=== PATIENT | female | born 1990 | race Hispanic/Latino ===

== ENCOUNTER 2019-11-22 15:38 | Emergency (ER) | payer OTHER ==
[2019-11-22 16:20] LABS: Urine Blood 2+ (NEG); Urine Glucose NEGATIVE (NEG); Urine Protein NEGATIVE (NEG); Urine Specific Gravity 1.015 (1.005-1.030)
[2019-11-22 16:23] LABS: Urine Bacteria 20-50 /HPF (<20); Urine Culture Reflex Order NOT NEEDED; Urine RBC <5 /HPF (NONE SEEN)
--- NOTE | 2019-11-22 16:57 | ER ---
Nurse's Notes [facility] Name: Yara Jack Age: 29 yrs Sex: Female : 1990 Arrival Date: 11/22/2019 Time: 15:39 Bed 15 Private MD: Diagnosis: Influenza due to certain identified influenza viruses;Urinary tract infection, site not specified Presentation: 11/22 15:44 Presenting complaint: Productive cough, fever, sore throat, body aches, chills, and hb headache x 3 days. TMAX 101.5. Transition of care: patient was not received from another setting of care. Onset of symptoms was November 19, 2019. Risk Assessment: Do you want to hurt yourself or someone else? Patient reports no desire to harm self or others. Initial Sepsis Screen: Does the patient meet any 2 criteria? HR > 90 bpm. No. Patient's initial sepsis screen is negative. Care prior to arrival: Medication(s) given: DqyQuil at 1430. 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 - Coronavirus screen:: The patient has NOT traveled to [place], [place], or [place] in the past 14 days. The patient has NOT had contact with known/suspected case of Coronavirus? Proceed with normal triage procedures. - Social history:: Smoking status: Patient denies any tobacco usage or history of. - Ebola Screening: : No symptoms or risks identified at this time. Screenin:16 Abuse screen: Denies threats or abuse. Denies injuries from another. Nutritional aj1 screening: No deficits noted. Tuberculosis screening: No symptoms or risk factors identified. Fall Risk None identified. Assessment: 17:16 General: Appears in no apparent distress. uncomfortable, Behavior is calm, cooperative, aj1 appropriate for age. Pain: Complains of pain in face. Neuro: Level of Consciousness is awake, alert, obeys commands, Oriented to person, place, time, situation. Cardiovascular: Patient's skin is warm and dry. Respiratory: Reports cough that is hacking, persistent Airway is patent Respiratory effort is even, unlabored, Respiratory pattern is regular, symmetrical, Breath sounds are clear bilaterally. GI: No signs and/or symptoms were reported involving the gastrointestinal system. : No signs and/or symptoms were reported regarding the genitourinary system. EENT: Reports nasal congestion nasal discharge. Derm: No signs and/or symptoms reported regarding the dermatologic system. Skin is pink, warm \T\ dry. normal. Musculoskeletal: No signs and/or symptoms reported regarding the musculoskeletal system. Circulation, motion, and sensation intact. Vital Signs: 15:46 BP 144 / 92; Pulse 106; Resp 16; Temp 99.3(TE); Pulse Ox 97% on R/A; Weight 74.84 kg; hb Height 5 ft. (152.40 cm); Pain 8/10; 15:46 Body Mass Index 32.22 (74.84 kg, 152.40 cm) hb ED Course: 15:39 Patient arrived in ED. rg4 15:45 Maggie Cedeno FNP-C is PHCP. snw 15:45 Angel Mckeon MD is Attending Physician. snw 15:46 Triage completed. hb 15:46 Arm band placed on. hb 15:55 Vane Richardson RN is Primary Nurse. aj1 16:45 PHCP role handed off by Maggie Cedeno FNP-C jmm 16:45 Andres Rubio PA is PHCP. [facility] 17:16 Patient has correct armband on for positive identification. Bed in low position. Call aj1 light in reach. Side rails up X 1. 17:16 No provider procedures requiring assistance completed. Patient did not have IV access aj during this emergency room visit. Administered Medications: No medications were administered Outcome: 16:56 Discharge ordered by . jorge luis 17:16 Discharged to home ambulatory. aj1 17:16 Condition: good 17:16 Discharge instructions given to patient, Instructed on discharge instructions, follow up and referral plans. medication usage, Demonstrated understanding of instructions, follow-up care, medications, Prescriptions given X 2. 17:18 Patient left the ED. aj Signatures: Vane Richardson RN RN aj Maggie Cedeno FNP-C FNP-Csnw Andres Rubio PA PA jmm Karen Love, RN RN hb Traci Mcallister rg4
--- NOTE | 2019-11-22 16:57 | EDPHYS ---
Physician Documentation [facility] Name: Yara Jack Age: 29 yrs Sex: Female : 1990 Arrival Date: 11/22/2019 Time: 15:39 Bed 15 Private MD: ED Physician Angel Mckeon HPI: 11/22 16:02 This 29 yrs old Female presents to ER via Ambulatory with complaints of Fever, snw Cough, Chills,Body Aches. 16:02 The patient reports fever, that was measured at 101.5 degrees Fahrenheit. Onset: The snw symptoms/episode began/occurred suddenly, 3 day(s) ago, and became persistent. Associated signs and symptoms: Pertinent positives: abdominal pain, headache, sinus congestion, sore throat. Severity of symptoms: At their worst the symptoms were moderate severe. The patient has not experienced similar symptoms in the past. The patient has not recently seen a physician. 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 - Coronavirus screen:: The patient has NOT traveled to [place], [place], or [place] in the past 14 days. The patient has NOT had contact with known/suspected case of Coronavirus? Proceed with normal triage procedures. - Social history:: Smoking status: Patient denies any tobacco usage or history of. - Ebola Screening: : No symptoms or risks identified at this time. ROS: 16:00 Eyes: Negative for injury, pain, redness, and discharge. snw 16:00 Neck: Negative for injury, pain, and swelling, Cardiovascular: Negative for chest pain, palpitations, and edema, Respiratory: Negative for shortness of breath, cough, wheezing, and pleuritic chest pain. 16:00 Back: Negative for injury and pain, : Negative for injury, bleeding, discharge, and swelling, MS/Extremity: Negative for injury and deformity, Skin: Negative for injury, rash, and discoloration. 16:00 Constitutional: Positive for body aches, fatigue, malaise. 16:00 ENT: Positive for nasal discharge, sore throat. 16:00 Abdomen/GI: Positive for abdominal pain. 16:00 Neuro: Positive for headache. Exam: 15:59 Head/Face: Normocephalic, atraumatic. Eyes: Pupils equal round and reactive to light, snw extra-ocular motions intact. Lids and lashes normal. Conjunctiva and sclera are non-icteric and not injected. Cornea within normal limits. Periorbital areas with no swelling, redness, or edema. ENT: Nares patent. No nasal discharge, no septal abnormalities noted. Tympanic membranes are normal and external auditory canals are clear. Oropharynx with no redness, swelling, or masses, exudates, or evidence of obstruction, uvula midline. Mucous membranes moist. Neck: Trachea midline, no thyromegaly or masses palpated, and no cervical lymphadenopathy. Supple, full range of motion without nuchal rigidity, or vertebral point tenderness. No Meningismus. Chest/axilla: Normal chest wall appearance and motion. Nontender with no deformity. No lesions are appreciated. 15:59 Respiratory: Lungs have equal breath sounds bilaterally, clear to auscultation and percussion. No rales, rhonchi or wheezes noted. No increased work of breathing, no retractions or nasal flaring. Abdomen/GI: Soft, non-tender, with normal bowel sounds. No distension or tympany. No guarding or rebound. No evidence of tenderness throughout. Back: No spinal tenderness. No costovertebral tenderness. Full range of motion. Skin: Warm, dry with normal turgor. Normal color with no rashes, no lesions, and no evidence of cellulitis. MS/ Extremity: Pulses equal, no cyanosis. Neurovascular intact. Full, normal range of motion. Neuro: Awake and alert, GCS 15, oriented to person, place, time, and situation. Cranial nerves II-XII grossly intact. Motor strength 5/5 in all extremities. Sensory grossly intact. Cerebellar exam normal. Normal gait. Psych: Awake, alert, with orientation to person, place and time. Behavior, mood, and affect are within normal limits. 15:59 Constitutional: The patient appears alert, awake, uncomfortable. 15:59 Cardiovascular: Rate: tachycardic, Rhythm: regular, Pulses: no pulse deficits are appreciated. Vital Signs: 15:46 BP 144 / 92; Pulse 106; Resp 16; Temp 99.3(TE); Pulse Ox 97% on R/A; Weight 74.84 kg; hb Height 5 ft. (152.40 cm); Pain 8/10; 15:46 Body Mass Index 32.22 (74.84 kg, 152.40 cm) hb MDM: 15:49 Patient medically screened. estrella 16:01 Data reviewed: vital signs, nurses notes. Data interpreted: Pulse oximetry: on room air snw is 97 %. Interpretation: acceptable. Counseling: I had a detailed discussion with the patient and/or guardian regarding: the historical points, exam findings, and any diagnostic results supporting the discharge/admit diagnosis, lab results, the need for outpatient follow up, to return to the emergency department if symptoms worsen or persist or if there are any questions or concerns that arise at home. Special discussion: I have referred the patient to see his PCP for further evaluation of high blood pressure. Based on the history and exam findings, there is no indication for further emergent testing or inpatient evaluation. I discussed with the patient/guardian the need to see the primary care provider for further evaluation of the symptoms. 16:02 Differential diagnosis: viral Infection, bacterial infection, URI, bronchitis. snw 11/22 15:45 Order name: Flu; Complete Time: 16:54 snw 11/22 15:45 Order name: Strep; Complete Time: 16:54 snw 11/22 15:45 Order name: Urine Culture snw 11/22 15:45 Order name: Urine Microscopic Only; Complete Time: 16:54 snw 11/22 16:08 Order name: Urine Dipstick--Ancillary (enter results); Complete Time: 16:54 eb 11/22 16:08 Order name: Urine --Ancillary (enter results); Complete Time: 16:54 eb 11/22 15:45 Order name: Urine Test (obtain specimen); Complete Time: 16:16 snw 11/22 15:45 Order name: Urine Dipstick-Ancillary (obtain specimen); Complete Time: 16:16 snw 11/22 16:26 Order name: Throat Culture EDMS Administered Medications: No medications were administered Disposition: 11/22/19 16:56 Discharged to Home. Impression: Influenza due to certain identified influenza viruses, Urinary tract infection, site not specified. - Condition is Stable. - Discharge Instructions: Influenza, Adult, Urinary Tract Infection, Adult. - Prescriptions for Cephalexin 500 mg Oral Capsule - take 1 capsule by ORAL route every 12 hours for 10 days; 20 capsule. Tamiflu 75 mg Oral Capsule - take 1 tablet by ORAL route every 12 hours for 5 days; 10 tablet. - Medication Reconciliation Form, Thank You Letter, Antibiotic Education, Prescription Opioid Use form. - Follow up: Private Physician; When: 2 - 3 days; Reason: Recheck today's complaints, Continuance of care, Re-evaluation by your physician. Addendum: 11/24/2019 07:26 Co-signature as Attending Physician, Angel Mckeon MD I agree with the assessment and c tracy plan of care. Signatures: Dispatcher [employer] EDVane Farr, RN RN Angel Nicolas MD MD cha Therrien, Shelly, TREE AND SHRUB TECHNICIAN-C TREE AND SHRUB TECHNICIAN-Csnw Andres Rubio PA PA jm Karen Love RN RN Corrections: (The following items were deleted from the chart) 11/22 16:56 16:56 11/22/2019 16:56 Discharged to Home. Impression: Influenza due to certain [facility] identified influenza viruses. Condition is Stable. Forms are Medication Reconciliation Form, Thank You Letter, Antibiotic Education, Prescription Opioid Use. Follow up: Private Physician; When: 2 - 3 days; Reason: Recheck today's complaints, Continuance of care, Re-evaluation by your physician. [facility] 17:18 16:56 11/22/2019 16:56 Discharged to Home. Impression: Influenza due to certain [facility] identified influenza viruses; Urinary tract infection, site not specified. Condition is Stable. Forms are Medication Reconciliation Form, Thank You Letter, Antibiotic Education, Prescription Opioid Use. Follow up: Private Physician; When: 2 - 3 days; Reason: Recheck today's complaints, Continuance of care, Re-evaluation by your physician. [facility]
[2019-11-22 18:17] VITALS: BP 144/92; TEMP 99.3; O2SAT 97
== END 2019-11-22 17:18 | disposition home or self-care (01) ==
LOC: ER 15:38
DX: J10.1 Influenza due to other identified influenza virus with other respiratory manifestations (principal); N39.0 Urinary tract infection, site not specified
CPT/HCPCS: 81003; 81015; 81025; 87070; 87081; 87086; 87088; 87804; 99282

== ENCOUNTER 2021-12-14 14:45 | Emergency (ER) | payer OTHER ==
--- OUTSIDE RECORDS SUMMARY | 2021-12-14 14:48 | XMS REPORT | Continuity of Care Document ---
:1990 Author Organization [facility] t Address [address] [place] [address] Care Team Providers Name Role Phone PCP, DOES NOT HAVE A Primary Care Physician Unavailable Kamala ECKERT Attending Clinician Unavailable Kamala Eckert MD Attending Clinician Payers Payer Name Policy Type Policy Number Effective Date Expiration Date [facility] [id number] 2014 CHOICE MEDICAID 00:00:00 Problems Condition Condition Condition Status Onset Resolution Last Treating Co mments Source Name Details Category Date Date Treatment Clinician Date Obesity Obesity Disease Active 2020-10 Univers (BMI (BMI 1-12 ity of 30-39.9) 30-39.9) 00:00: [place] [address] [facility] Allergies, Adverse Reactions, Alerts Allergy Allergy Status Severity Reaction(s) Onset Inactive Treating Comm ents Source Name Type Date Date Clinician NO KNOWN Drug Active Univers ALLERGIE Class ity of [facility] Social History Social Habit Start Date Stop Date Quantity Comments Source History of Cigarette Smoker Universi ty of tobacco use [facility] History SDOH University o f Alcohol Frequency [place] [facility] History SDOH University o f Alcohol Std [facility] Drinks [facility] History SDNC University o f Alcohol Binge [facility] Exposure to Not sure University of SARS-CoV-2 [facility] (event) [facility] Alcohol intake 2021-09-30 2021-09-30 Current drinker Unive rsity of 00:00:00 00:00:00 of alcohol [facility] (finding) [facility] Tobacco use and 2021-09-022021-09-02 Never used Universit y of exposure 00:00:00 00:00:00 [facility] Alcohol Comment 2021-09-02 2021-09-02 social Universit y of 00:00:00 00:00:00 [facility] Tobacco Comment 2021-09-02 2021-09-02 5-8 ciggs a day Univ ersity of 00:00:00 00:00:00 [facility] Sex Ass[birth year] At [birth year] Universit y of 00:00:00 00:00:00 [facility] Smoking Status Start Date Stop Date Source Current every day smoker 2021-09-02 00:00:00 Uni versity [facility] Medications Ordered Filled Start Stop Current Ordering Indication Dosage Frequency Signature Comments Components Source Medication Medication Date Date Medication? Clinician (SIG) Name Name SERTraline 2020-10 Yes Univers 50 mg 1-03 ity of tablet 00:00: [address] losartan 25 2020-10 Yes Univer s mg tablet 1-03 ity of 00:00: [address] busPIRone 5 Yes Univer s mg tablet 8- ity of 00:00: [address] Vital Signs Vital Name Observation Time Observation Value Comments Source Systolic blood 2021-09-30 15:31:00 120 mm[Hg] Univer sity of pressure [facility] Diastolic blood 2021-09-30 15:31:00 78 mm[Hg] Unive rsity of pressure [facility] Heart rate 2021-09-30 15:31:00 74 /min [facility] Body temperature 2021-09-30 15:31:00 36.89 [facility] Respiratory rate 2021-09-30 15:31:00 18 /min [facility] Body height 2021-09-30 15:31:00 152.4 cm [facility] Body weight 2021-09-30 15:31:00 73.483 kg [facility] BMI 2021-09-30 15:31:00 31.64 kg/m2 [facility] Procedures This patient has no known procedures. Encounters Start End Encounter Admission Attending Care Care Encounter Source Date/Time Date/Time Type Type Clinicians Facility Department ID 2021-09-30 2021-09-30 Outpatient R [facility] [id number] Univers 09:30:00 12:41:13 MARIBEL vasquez of [facility] 2021-09-30 2021-09-30 Office Ad, [facility] [id number] Univers 09:24:40 09:54:40 Visit Maribel ROSA [id number] christina lauren ITHACA [id number] Jaciel KIM [id number] [facility] [address] [facility] Results This patient has no known results.
[2021-12-14 17:12] LABS: Urine Blood Trace-intact (Negative); Urine Glucose Negative (Negative); Urine Protein Negative (Negative); Urine Specific Gravity 1.025 (1.005-1.030)
[2021-12-14] MEDS ORDERED: ONDANSETRON 4 MG/2 ML VIAL ONE (17:22)
[2021-12-14] MEDS ORDERED: NA CHLORIDE 0.9% 1,000 ML ONE (17:22)
[2021-12-14] MEDS ORDERED: FAMOTIDINE 20 MG/2 ML VIAL IV ONE (17:22)
[2021-12-14 17:30] LABS: Urine Bacteria 20-50 /HPF (<20); Urine Mucus 1+ /HPF (NONE SEEN); Urine RBC <5 /HPF (NONE SEEN)
[2021-12-14 18:02] LABS: Absolute Lymphocytes (CBC) 1.7 K/uL (0.7-4.9); Hematocrit 39.3 % (36.0-45.0); Lymphocytes % 19.2 % (15.3-44.8); MPV 7.2 fL (7.6-11.3); RBC Red Blood Cell Count 4.79 M/uL (3.86-4.86)
[2021-12-14 18:13] LABS: ALT/SGPT 35 U/L (12-78); AST/SGOT 11 U/L (15-37); Albumin 3.8 g/dL (3.4-5.0); Alkaline Phosphatase 79 U/L (45-117); BUN Blood Urea Nitrogen 10 mg/dL (7-18); Bicarbonate 27 mmol/L (21-32); Bilirubin Total 0.3 mg/dL (0.2-1.0); Glucose Level 86 mg/dL (74-106); Lipase 118 U/L (73-393); Potassium 3.7 mmol/L (3.5-5.1); Protein, Total 8.5 g/dL (6.4-8.2); Sodium Level 137 mmol/L (136-145)
[2021-12-14 18:14] LABS: Bilirubin Direct < 0.1 mg/dL (0-0.2)
--- NOTE | 2021-12-14 18:20 | RAD REPORT ---
EXAM DESCRIPTION: US - Abdomen Exam Limited - 12/14/2021 6:04 pm CLINICAL HISTORY: ABD PAIN COMPARISON: ABDOMINAL EXAM COMPLETE dated 05/11/2009 FINDINGS: The gallbladder demonstrates gallbladder sludge and small gallstone. No pericholecystic fl uid or gallbladder wall thickening. The common bile duct is normal measuring 2 mm. The liver demonstrates no findings of intrahepatic biliary dilatation. IMPRESSION: Small gallstone and gallbladder sludge.
--- NOTE | 2021-12-14 19:04 | ER ---
Nurse's Notes [facility] Name: Yara Jack Age: 31 yrs Sex: Female : 1990 Arrival Date: 12/14/2021 Time: 14:47 Bed 11 Private MD: Diagnosis: Upper abdominal pain, unspecified;Nausea with vomiting, unspecified;Other cholelithiasis without obstruction Presentation: 12/14 15:05 Chief complaint: Patient states: she began having abdominal pain with nausea and ap3 vomiting this morning. Patient states she was seen by here PCP yesterday (prior to todays complaint) and was dx with upper respiratory infection. Coronavirus screen: muscle pain, nausea, Client presents with at least one sign or symptom that may indicate coronavirus-19. Standard/surgical mask placed on the client. Provider contacted for isolation considerations. Ebola Screen: No symptoms or risks identified at this time. Initial Sepsis Screen: Does the patient meet any 2 criteria? No. Patient's initial sepsis screen is negative. Does the patient have a suspected source of infection? No. Patient's initial sepsis screen is negative. Risk Assessment: Do you want to hurt yourself or someone else? Patient reports no desire to harm self or others. Onset of symptoms was December 14, 2021. 15:05 Method Of Arrival: Ambulatory ap3 15:05 Acuity: ARTIS 3 ap3 Triage Assessment: 15:08 General: Appears in no apparent distress. Behavior is calm, cooperative. Pain: ap3 Complains of pain in abdomen Pain began gradually, this morning Also complains of nausea. Neuro: Level of Consciousness is awake, alert, obeys commands, Oriented to person, place, time, situation, Appropriate for age Moves all extremities. Gait is steady, Speech is normal. Cardiovascular: Patient's skin is warm and dry. Respiratory: Airway is patent Respiratory effort is even, unlabored, Respiratory pattern is regular, symmetrical. GI: Reports lower abdominal pain, upper abdominal pain, intolerance of food, nausea, vomiting. 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 - Social history:: Smoking status: Patient reports the use of cigarette tobacco products, smokes one-half pack cigarettes per day. Screenin:09 Abuse screen: Denies threats or abuse. Nutritional screening: No deficits noted. ap3 Tuberculosis screening: No symptoms or risk factors identified. Fall Risk No fall in past 12 months (0 pts). Assessment: 18:06 General: Appears in no apparent distress. comfortable, Behavior is calm, cooperative, ld1 appropriate for age. Pain: Complains of pain in abdomen Pain does not radiate. Pain currently is 7 out of 10 on a pain scale. Quality of pain is described as throbbing, Pain began gradually, Is continuous. Neuro: Level of Consciousness is awake, alert, obeys commands, Oriented to person, place, time, situation. Cardiovascular: Capillary refill < 3 seconds Patient's skin is warm and dry. Respiratory: Airway is patent Respiratory effort is even, unlabored. GI: Abdomen is flat, non-distended, Reports lower abdominal pain, upper abdominal pain, nausea, vomiting. : No signs and/or symptoms were reported regarding the genitourinary system. EENT: No signs and/or symptoms were reported regarding the EENT system. Derm: No signs and/or symptoms reported regarding the dermatologic system. Vital Signs: 15:05 BP 119 / 91; Pulse 80; Resp 16; Temp 98.1; Pulse Ox 100% ; Weight 75.75 kg; Height 5 ap3 ft. 0 in. (152.40 cm); Pain 8/10; 18:06 BP 125 / 89; Pulse 86; Resp 18; Pulse Ox 100% on R/A; Pain 6/10; ld1 15:05 Body Mass Index 32.61 (75.75 kg, 152.40 cm) ap3 ED Course: 14:47 Patient arrived in ED. as 15:07 Triage completed. ap3 15:10 Arm band placed on left wrist. ap3 16:39 Angel Fuentes PA is PHCP. cp 16:39 Irsi Hubbard MD is Attending Physician. cp 16:45 Sheron Acevedo RN is Primary Nurse. ld1 17:13 Urine Microscopic Only Sent. ld1 18:04 US Abdomen Limited In Process Unspecified. EDMS 18:06 Patient has correct armband on for positive identification. Placed in gown. Bed in low ld1 position. Call light in reach. Side rails up X2. Pulse ox on. NIBP on. Door closed. Noise minimized. Warm blanket given. 18:06 No provider procedures requiring assistance completed. Inserted saline lock: 22 gauge ld1 in left antecubital area, using aseptic technique. Blood collected. 19:08 IV discontinued, intact, bleeding controlled, No redness/swelling at site. ld1 Administered Medications: 17:39 Drug: Zofran (Ondansetron) 4 mg Route: IVP; Site: left antecubital; ld1 17:39 Drug: Pepcid (famotidine) 20 mg Route: IVP; Site: left antecubital; ld1 17:39 Drug: NS 0.9% 1000 ml Route: IV; Rate: 1 bolus; Site: left antecubital; ld1 Outcome: 19:03 Discharge ordered by . asim 19:08 Discharged to home ambulatory. ld1 19:08 Condition: stable 19:08 Discharge instructions given to patient, Instructed on discharge instructions, follow up and referral plans. medication usage, Demonstrated understanding of instructions, follow-up care, medications, Prescriptions given X 2. 19:08 Patient left the ED. ld1 Signatures: Dispatcher [employer] EDMS Mackenzie Merino Corey, PA PA cp Prokisch, Amanda, RN RN ap3 Sheron Acevedo RN RN ld1
--- NOTE | 2021-12-14 19:04 | EDPHYS ---
Physician Documentation [facility] Name: Yara Jack Age: 31 yrs Sex: Female : 1990 Arrival Date: 12/14/2021 Time: 14:47 Bed 11 Private MD: ED Physician Iris Hubbard HPI: 12/14 17:00 This 31 yrs old Female presents to ER via Ambulatory with complaints of cp Nausea/Vomiting, Abdominal Pain. 17:00 The patient presents to the emergency department with nausea, that is mild, vomiting, cp that is intermittent, abdominal pain, of the upper abdomen. 17:00 Onset: The symptoms/episode began/occurred this morning. Possible causes: antibiotics, cp macrolide, Zithromax. Associated signs and symptoms: Pertinent negatives: constipation, diarrhea, fever, GI bleeding, active vomiting. Severity of symptoms: in the emergency department the symptoms have improved mildly. CLAMMER: 15:09 LMP N/A - control method ap3 Historical: - Allergies: 15:07 NKA; ap3 - Home Meds: 15:07 Zoloft Oral [Active]; losartan oral [Active]; ap3 - PMHx: 15:07 Hypertensive disorder; Anxiety; ap3 - Immunization history:: Client reports receiving the 2nd dose of the Covid vaccine, Flu vaccine is not up to date. - Social history:: Smoking status: Patient reports the use of cigarette tobacco products, smokes one-half pack cigarettes per day. ROS: 17:05 Constitutional: Negative for body aches, chills, fever, poor PO intake. cp 17:05 Eyes: Negative for injury, pain, redness, and discharge. cp 17:05 ENT: Negative for drainage from ear(s), ear pain, sore throat, difficulty swallowing, difficulty handling secretions. 17:05 Cardiovascular: Negative for chest pain, palpitations. 17:05 Respiratory: Positive for cough, Negative for shortness of breath, wheezing. 17:05 Abdomen/GI: Positive for abdominal pain, nausea and vomiting, anorexia, Negative for diarrhea, constipation. 17:05 : Negative for urinary symptoms. 17:05 Neuro: Negative for altered mental status, dizziness, headache, weakness. 17:05 All other systems are negative. Exam: 17:10 Constitutional: The patient appears in no acute distress, alert, awake, non-toxic, well cp developed, well nourished. 17:10 Head/Face: Normocephalic, atraumatic. cp 17:10 Eyes: Periorbital structures: appear normal, Conjunctiva: normal, no exudate, no injection, Sclera: no appreciated abnormality, Lids and lashes: appear normal, bilaterally. 17:10 ENT: External ear(s): are unremarkable, Nose: is normal, Mouth: Lips: moist, Oral mucosa: pink and intact, moist, Posterior pharynx: Airway: no evidence of obstruction, patent, erythema, is not appreciated, exudate, is not appreciated. 17:10 Neck: ROM/movement: is normal, is supple, without pain, no range of motions limitations. 17:10 Chest/axilla: Inspection: normal. 17:10 Cardiovascular: Rate: normal, Rhythm: regular. 17:10 Respiratory: the patient does not display signs of respiratory distress, Respirations: normal, no use of accessory muscles, no retractions, labored breathing, is not present, Breath sounds: are clear throughout, no decreased breath sounds, no stridor, no wheezing. 17:10 Abdomen/GI: Inspection: abdomen appears normal, Bowel sounds: active, all quadrants, Palpation: soft, in all quadrants, mild abdominal tenderness, in the epigastric area and right upper quadrant, rebound tenderness, is not appreciated, involuntary guarding, is not appreciated. 17:10 Back: CVA tenderness, is absent. Vital Signs: 15:05 BP 119 / 91; Pulse 80; Resp 16; Temp 98.1; Pulse Ox 100% ; Weight 75.75 kg; Height 5 ap3 ft. 0 in. (152.40 cm); Pain 8/10; 18:06 BP 125 / 89; Pulse 86; Resp 18; Pulse Ox 100% on R/A; Pain 6/10; ld1 15:05 Body Mass Index 32.61 (75.75 kg, 152.40 cm) ap3 MDM: 16:50 Patient medically screened. cp 18:00 Differential diagnosis: gastritis, cholecystitis, pancreatitis, appendicitis, viral cp gastroenteritis, gastroenteritis. 19:00 Data reviewed: vital signs, nurses notes, lab test result(s), radiologic studies, cp ultrasound. 19:00 Counseling: I had a detailed discussion with the patient and/or guardian regarding: the cp historical points, exam findings, and any diagnostic results supporting the discharge/admit diagnosis, lab results, radiology results, to return to the emergency department if symptoms worsen or persist or if there are any questions or concerns that arise at home. Response to treatment: the patient's symptoms have markedly improved after treatment. ED course: VSS. Pain improved. Will have patient stop Zithromax and start Augmentin. Continue to monitor symptoms and f/u with general surgery for gallstones. 12/14 16:59 Order name: Urine Microscopic Only; Complete Time: 18:27 cp 12/14 18:27 Interpretation: Normal except: UBACT 20-50. cp 12/14 17:12 Order name: Urine Dipstick-Ancillary [facility] 12/14 17:13 Order name: Urine Dipstick-Ancillary; Complete Time: 17:13 [facility] 12/14 17:13 Interpretation: Normal except: UBLD Trace-intact. 12/14 17:13 Order name: Basic Metabolic Panel; Complete Time: 18:27 cp 12/14 17:13 Order name: CBC with Diff; Complete Time: 18:27 cp 12/14 18:27 Interpretation: Normal except: MPV 7.2; SANDEEP% 74.5. cp 12/14 17:13 Order name: Hepatic Function; Complete Time: 18:27 cp 12/14 18:27 Interpretation: Normal except: AST 11; TP 8.5; GLOB 4.7; A/G 0.8. 12/14 16:50 Order name: Urine Dipstick-Ancillary (obtain specimen); Complete Time: 17:13 cp 12/14 17:13 Order name: Lipase; Complete Time: 18:27 cp 12/14 17:13 Order name: US Abdomen Limited; Complete Time: 18:27 cp 12/14 17:22 Order name: Urine --Ancillary (enter results) 12/14 17:31 Order name: Urine Culture [facility] 12/14 16:50 Order name: Urine Test (obtain specimen); Complete Time: 17:13 cp 12/14 17:13 Order name: IV Saline Lock; Complete Time: 17:39 cp 12/14 17:13 Order name: Labs collected and sent; Complete Time: 17:39 cp Administered Medications: 17:39 Drug: Zofran (Ondansetron) 4 mg Route: IVP; Site: left antecubital; ld1 17:39 Drug: Pepcid (famotidine) 20 mg Route: IVP; Site: left antecubital; ld1 17:39 Drug: NS 0.9% 1000 ml Route: IV; Rate: 1 bolus; Site: left antecubital; ld1 Disposition Summary: 12/14/21 19:03 Discharge Ordered Location: Home cp Problem: new cp Symptoms: have improved cp Condition: Stable cp Diagnosis - Upper abdominal pain, unspecified cp - Nausea with vomiting, unspecified cp - Other cholelithiasis without obstruction cp Followup: cp - With: Private Physician - When: 2 - 3 days - Reason: Recheck today's complaints Discharge Instructions: - Discharge Summary Sheet cp - Abdominal Pain, Adult cp - Nausea and Vomiting, Adult cp - Cholelithiasis cp Forms: - Medication Reconciliation Form cp - Thank You Letter cp - Antibiotic Education cp - Prescription Opioid Use cp Prescriptions: - Augmentin 875-125 mg Oral Tablet - take 1 tablet by ORAL route every 12 hours for 10 days; 20 tablet; Refills: 0, cp Product Selection Permitted - Zofran 4 mg Oral Tablet - take 1 tablet by ORAL route every 12 hours As needed; 20 tablet; Refills: 0, cp Product Selection Permitted Signatures: Dispatcher [employer] EDMS Angel Fuentes PA PA cp Prokisch, Amanda RN RN ap3 Sheron Acevedo RN RN ld1
[2021-12-14 19:05] LABS: Urine Specific Gravity/Preg 1.025 (1.005-1.030)
[2021-12-14 20:20] VITALS: TEMP 98.1; O2SAT 100
[2021-12-14 20:23] VITALS: BP 125/89
== END 2021-12-14 19:08 | disposition home or self-care (01) ==
LOC: ER 14:45
DX: K80.80 Other cholelithiasis without obstruction (principal); R10.10 Upper abdominal pain, unspecified; I10 Essential (primary) hypertension; F41.9 Anxiety disorder, unspecified; F17.210 Nicotine dependence, cigarettes, uncomplicated
CPT/HCPCS: 85025; 87086; 80048; 36415; 81025; 80076; 83690; 76705; 96375; 96374; 99284; J7030; J2405; 81003; 81015; 87088

== ENCOUNTER → 2023-10-21 | Emergency (ER) | payer OTHER ==
--- OUTSIDE RECORDS SUMMARY | 2023-10-21 12:01 | XMS REPORT | Continuity of Care Document ---
Author Name Unknown Address [address] [facility] [address] [place] [address] [facility] thconnect Address [address] [facility]. [address] [place] [address] Care Team Providers Care Well Testing Operator Name Role Phone Sheron Cadena NP Primary Care Physician [phone]- [phone] ELICEO DOVER Attending Clinician UnavailELICEO Laureano Attending Clinician UnavailJOSIAH Rojas Attending Clinician Unavailable Josiah León MD Attending Clinician [phone] Doctor Unassigned, [place] Attending Clinician U navailable JESSICA VANN Attending Clinician Unavailable Jessica Vann MD Attending Clinician [phone] VIKI CLINE Attending Clinician UnavailViki [place] Attending Clinician [phone] Farrukh Wells MD Attending Clinician [phone] FARRUKH WELLS Attending Clinician Unavailable Only, Adc Test Attending Clinician Unavailable VIKI CLINE Admitting Clinician Unavaila FARRUKH Corrigan Admitting Clinician Unavailable Farrukh Wells MD Admitting Clinician [phone] JESSICA VANN Admitting Clinician Unavailable Payers Payer Name Policy Type Policy Number Effective Date Expirati on Date Source [employer] MAYRA FUNES [id number] 2014 00:00:00 Problems Condition Name Condition Details Condition Category Status Onset Date Resolution Date Last Treatment Date Treating Clinician Comments Source Routine gynecologi hayde examinatio n Routine gynecologi hayde examinatio n Disease Active 05-07 00:00: 00 [facility] Biliary colic Biliary colic Disease Active - 00:00: 00 Overview: Formattin g of this note might be different from the original. Added automatic ally from request for surgery [id number] [facility] Obesity (BMI 30-39.9) Obesity (BMI 30-39.9) Disease Active 2020-10 1 00:00: 00 [facility] Allergies, Adverse Reactions, Alerts Allergy Name Allergy Type Status Severity Reaction(s) Onset Date Inactive Date Treating Clinician Comments Source NO KNOWN ALLERGIE S Drug Class Active [facility] Social History Social Habit Start Date Stop Date Quantity Comments Source History of tobacco use Cigarette Smoker [facility] History SDOH Alcohol Frequency [facility] History SDOH Alcohol Std Drinks [facility] History SDOH Alcohol Binge [facility] Tobacco use and exposure 2023-05-07 00:00:00 2023-05-07 00:00:00 Smokeless tobacco non-user [facility] Alcohol intake 2023-05-07 00:00:00 2023-05-07 00:00:00 Current drinker of alcohol (finding) [facility] History of Social function 2023-02-26 00:00:00 2023-02-26 00:00:00 [facility] Exposure to SARS-CoV-2 (event) 2023-02-15 00:00:00 2023-02-25 21:39:00 Not sure [facility] Tobacco Comment 2022-06-14 00:00:00 2022-06-14 00:00:00 5-8 ciggs a day [facility] Alcohol Comment 2021-09-02 00:00:00 2021-09-02 00:00:00 social [facility] Sex Assigned At 1990 00:00:00 1990 00:00:00 [facility] Smoking Status Start Date Stop Date Source Smokes tobacco daily 2023-05-07 00:00:00 [facility] Medications Ordered Medication Name Filled Medication Name Start Date Stop Date Current Medication? Ordering Clinician Indication Dosage Frequency Signature (SIG) Comments Components Source amlodipine- atorvastata tin 2.5-20 mg per tablet 05-07 13:39: [address] [facility] amlodipine- atorvastata tin 2.5-20 mg per tablet 05-07 13:39: [address] [facility] amlodipine- atorvastata tin 2.5-20 mg per tablet 05-07 13:39: [address] [facility] PAWAN 1.5/30, 21, 1.5-30 mg-mcg per tablet 02-16 00:00: 00 05-07 00:00 :00 No TAKE ONE (1) TABLET(S) BY MOUTH DAILY IN THE MORNING. [facility] PAWAN 1.5/30, 21, 1.5-30 mg-mcg per tablet 02-16 00:00: 00 05-07 00:00 :00 No TAKE ONE (1) TABLET(S) BY MOUTH DAILY IN THE MORNING. [facility] losartan 50 mg tablet 02-14 00:00: 00 Yes 50mg Take 1 tablet by mouth in the morning. [facility] fenofibrate 54 mg tablet 02-14 00:00: 00 Yes 54mg Take 1 tablet by mouth in the morning. [facility] losartan 50 mg tablet 02-14 00:00: 00 Yes 50mg Take 1 tablet by mouth in the morning. [facility] fenofibrate 54 mg tablet 02-14 00:00: 00 Yes 54mg Take 1 tablet by mouth in the morning. [facility] losartan 50 mg tablet 02-14 00:00: 00 Yes 50mg Take 1 tablet by mouth in the morning. [facility] fenofibrate 54 mg tablet 4-26 00:00: 00 Yes 54mg Take 1 tablet by mouth in the morning. [facility] fluticasone propionate 50 mcg/actuati on nasal spray 413 00:00: 00 05-07 00:00 :00 No USE ONE (1) OR TWO (2) SPRAY(S) INTO EACH NOSTRIL DAILY. [facility] fluticasone propionate 50 mcg/actuati on nasal spray 413 00:00: 00 05-07 00:00 :00 No USE ONE (1) OR TWO (2) SPRAY(S) INTO EACH NOSTRIL DAILY. [facility] NUVARING 0.12-0.015 mg/24 hr vaginal insert 14 00:00: 00 Yes [id number] 1{each} Insert 1 Each into vagina once every month. Insert vaginally and leave in place for 3 consecutiv e weeks, then remove for [address] [facility] NUVARING 0.12-0.015 mg/24 hr vaginal insert 2021-0 914 00:00: 00 Yes [id number] 1{each} Insert 1 Each into vagina once every month. Insert vaginally and leave in place for 3 consecutiv e weeks, then remove for [address] [facility] NUVARING 0.12-0.015 mg/24 hr vaginal insert 0 9-14 00:00: 00 Yes [id number] 1{each} Insert 1 Each into vagina once every month. Insert vaginally and leave in place for 3 consecutiv e weeks, then remove for [address] [facility] NUVARING 0.12-0.015 mg/24 hr vaginal insert 2021-0 9-14 00:00: 00 Yes [id number] 1{each} Insert 1 Each into vagina once every month. Insert vaginally and leave in place for 3 consecutiv e weeks, then remove for [address] [facility] NUVARING 0.12-0.015 mg/24 hr vaginal insert 2021-0 9-14 00:00: 00 Yes [id number] 1{each} Insert 1 Each into vagina once every month. Insert vaginally and leave in place for 3 consecutiv e weeks, then remove for [address] [facility] NUVARING 0.12-0.015 mg/24 hr vaginal insert 07-05 00:00: 00 Yes [id number] 1{each} Insert 1 Each into vagina once every month. Insert vaginally and leave in place for 3 consecutiv e weeks, then remove for [address] [facility] NUVARING 0.12-0.015 mg/24 hr vaginal insert 07-05 00:00: 00 Yes [id number] 1{each} Insert 1 Each into vagina once every month. Insert vaginally and leave in place for 3 consecutiv e weeks, then remove for [address] [facility] NUVARING 0.12-0.015 mg/24 hr vaginal insert 07-05 00:00: 00 Yes [id number] 1{each} Insert 1 Each into vagina once every month. Insert vaginally and leave in place for 3 consecutiv e weeks, then remove for [address] [facility] Norethindro ne Acet-Ethiny l Est (LOESTRIN 1.5, ,) 1.5-30 mg-mcg per tablet 07-04 00:00: 00 Yes [id number] 1{tbl} Take 1 tablet by mouth in the morning. [facility] Norethindro ne Acet-Ethiny l Est (LOESTRIN 1.5, ,) 1.5-30 mg-mcg per tablet 07-04 00:00: 00 07-05 00:00 :00 No [id number] 1{tbl} Take 1 tablet by mouth in the morning. [facility] SERTraline 50 mg tablet 2020-10 00:00: 00 Yes 50mg Take 50 mg by mouth daily. [facility] losartan 25 mg tablet 2020-10 00:00: 00 Yes 25mg Take 25 mg by mouth daily. [facility] SERTraline 50 mg tablet 2020-10 00:00: 00 Yes 50mg Take 50 mg by mouth daily. [facility] losartan 25 mg tablet 2020-10 00:00: 00 Yes 25mg Take 25 mg by mouth daily. [facility] SERTraline 50 mg tablet 2020-10 00:00: 00 Yes 50mg Take 50 mg by mouth daily. [facility] losartan 25 mg tablet 2020-10 00:00: 00 Yes 25mg Take 25 mg by mouth daily. [facility] SERTraline 50 mg tablet 2020-10 00:00: 00 Yes 50mg Take 50 mg by mouth daily. [facility] losartan 25 mg tablet 2020-10 00:00: 00 Yes 25mg Take 25 mg by mouth daily. [facility] SERTraline 50 mg tablet 2020-10 00:00: 00 Yes 50mg Take 50 mg by mouth daily. [facility] losartan 25 mg tablet 2020-10 00:00: 00 Yes 25mg Take 25 mg by mouth daily. [facility] SERTraline 50 mg tablet 2020-10 00:00: 00 Yes 50mg Take 50 mg by mouth daily. [facility] losartan 25 mg tablet 2020-10 00:00: 00 Yes 25mg Take 25 mg by mouth daily. [facility] SERTraline 50 mg tablet 2020-10 00:00: 00 Yes 50mg Take 50 mg by mouth daily. [facility] losartan 25 mg tablet 2020-10 00:00: 00 Yes 25mg Take 25 mg by mouth daily. [facility] SERTraline 50 mg tablet 2020-10 00:00: 00 Yes 50mg Take 50 mg by mouth daily. [facility] losartan 25 mg tablet 2020-10 00:00: 00 Yes 25mg Take 1 tablet by mouth in the morning. [facility] SERTraline 50 mg tablet 2020-10 00:00: 00 Yes 50mg Take 50 mg by mouth daily. [facility] losartan 25 mg tablet 2020-10 00:00: 00 Yes 25mg Take 1 tablet by mouth in the morning. [facility] SERTraline 50 mg tablet 2020-10 00:00: 00 Yes 50mg Take 50 mg by mouth daily. [facility] losartan 25 mg tablet 2020-10 00:00: 00 Yes 25mg Take 1 tablet by mouth in the morning. [facility] busPIRone 5 mg tablet 06-16 00:00: 00 Yes 5mg Take 5 mg by mouth 2 (two) times daily as needed for Other. [facility] busPIRone 5 mg tablet 06-16 00:00: 00 Yes 5mg Take 5 mg by mouth 2 (two) times daily as needed for Other. [facility] busPIRone 5 mg tablet 06-16 00:00: 00 Yes 5mg Take 5 mg by mouth 2 (two) times daily as needed for Other. [facility] busPIRone 5 mg tablet 06-16 00:00: 00 Yes 5mg Take 5 mg by mouth 2 (two) times daily as needed for Other. [facility] busPIRone 5 mg tablet 06-16 00:00: 00 Yes 5mg Take 5 mg by mouth 2 (two) times daily as needed for Other. [facility] busPIRone 5 mg tablet 06-16 00:00: 00 Yes 5mg Take 5 mg by mouth 2 (two) times daily as needed for Other. [facility] busPIRone 5 mg tablet 06-16 00:00: 00 Yes 5mg Take 5 mg by mouth 2 (two) times daily as needed for Other. [facility] busPIRone 5 mg tablet 06-16 00:00: 00 Yes 5mg Take 5 mg by mouth 2 (two) times daily as needed for Other. [facility] busPIRone 5 mg tablet 06-16 00:00: 00 Yes 5mg Take 5 mg by mouth 2 (two) times daily as needed for Other. [facility] busPIRone 5 mg tablet 06-16 00:00: 00 Yes 5mg Take 5 mg by mouth 2 (two) times daily as needed for Other. [facility] Vital Signs Vital Name Observation Time Observation Value Comments Christian malhotra Systolic blood pressure 2023-05-07 18:24:00 121 mm[Hg] [facility] Diastolic blood pressure 2023-05-07 18:24:00 79 mm[Hg] [facility] Heart rate 2023-05-07 18:24:00 62 /min [facility] Body temperature 2023-05-07 18:24:00 36.83 Lori [facility] Respiratory rate 2023-05-07 18:24:00 18 /min [facility] Body height 2023-05-07 18:24:00 152.4 cm [facility] Body weight 2023-05-07 18:24:00 74.39 kg [facility] BMI 2023-05-07 18:24:00 32.03 kg/m2 [facility] Systolic blood pressure 2023-02-26 18:19:00 131 mm[Hg] [facility] Diastolic blood pressure 2023-02-26 18:19:00 84 mm[Hg] [facility] Heart rate 2023-02-26 18:19:00 71 /min [facility] Res[facility] 2023-02-26 18:19:00 17 /min [facility] Body height 2023-02-26 18:19:00 152.4 cm [facility] Body weight 2023-02-26 18:19:00 72.712 kg [facility] BMI 2023-02-26 18:19:00 31.31 kg/m2 [facility] Oxygen saturation in Arterial blood by Pulse oximetry 2023-02-26 18:19:00 99 /min [facility] Systolic blood pressure 2022-07-04 15:49:00 120 mm[Hg] [facility] Diastolic blood pressure 2022-07-04 15:49:00 85 mm[Hg] [facility] Heart rate 2022-07-04 15:49:00 70 /min [facility] Body temperature 2022-07-04 15:49:00 36.94 Lori [facility] Respiratory rate 2022-07-04 15:49:00 18 /min [facility] Body height 2022-07-04 15:49:00 152.4 cm [facility] Body weight 2022-07-04 15:49:00 75.751 kg [facility] BMI 2022-07-04 15:49:00 32.61 kg/m2 [facility] Procedures Procedure Date / Time Performed Performing Clinician Source RPR (MONITOR)$W/REFL TITER-Q 2023-05-07 19:23:00 Eliceo Dover [facility] ASSIGNMENT OF BENEFITS 2023-02-26 18:06:16 Petra cuello Unassigned, Manley [facility] POCT TEST 2022-07-04 16:49:00 Jessica Vann [facility] CONSENT FOR CONTRACEPTION 2022-07-04 05:01:00 Doctor Unassigned, [place]ley [facility] Encounters Start Date/Time End Date/Time Encounter Type Admission Type Attending Clinicians Care Facility Care Department Encounter ID Source 2023-05-30 14:30:00 2023-05-30 14:30:00 Outpatient R ELICEO DOVER [facility]ERY[facility] [id number] [facility] 2023-05-29 10:30:00 2023-05-29 10:30:00 Outpatient R [facility] [id number] [facility] 2023-05-07 13:30:00 2023-05-07 13:57:41 Outpatient R ELICEO DOVER [facility] [id number] [facility] 2023-05-07 13:30:00 2023-05-07 13:57:41 Office Visit Eliceo Dover [facility] 1.2.840.114 350.1.13.10 4.2.7.2.[id number] [facility] 2023-05-07 00:00:00 2023-05-07 00:00:00 Orders Only Eliceo Dover [facility] 1.2.840.114 350.1.13.10 4.2.7.2.[id number] [facility] 2023-02-26 13:20:00 2023-02-26 13:41:28 [facility] [id number] [facility] 2023-02-26 13:20:00 2023-02-26 13:41:28 [facility] 1.2840.114 350.1.13.10 4.2.7.2.[id number] [facility] 2023-02-26 00:00:00 2023-02-26 00:00:00 Orders Only Doctor Unassigned, Manley [facility] 1.2840.114 350.1.13.10 4.2.7.2.[id number] [facility] 2023-02-26 00:00:00 2023-02-26 00:00:00 [facility] 1.2840.114 350.1.13.10 4.2.7.2.[id number] [facility] 2022-11-10 09:30:00 2022-11-10 09:30:00 Outpatient R JESSICA VANN [facility] [id number] [facility] 2022-07-05 00:00:00 2022-07-05 00:00:00 Telephone Jessica Vann [facility] 1.2840.114 350.1.13.10 4.2.7.2.[id number] [facility] 2022-07-04 10:30:00 2022-07-04 12:04:32 Outpatient R JESSICA VANN [facility] [id number] [facility] 2022-07-04 10:30:00 2022-07-04 12:04:32 Office Visit Jessica Vann [facility] 1..840.114 350.1.13.10 4.2.7.2.[id number] [facility] 2022-07-04 00:00:00 2022-07-04 00:00:00 Orders Only Doctor Unassigned, Manley [facility] 1.840.114 350.1.13.10 4.2.7.2.[id number] [facility] 2022-06-20 08:10:40 2022-06-20 23:59:00 Outpatient R CAROLA CLINETNEY [facility] [id number] [facility] 2022-06-20 08:00:00 2022-06-20 23:59:00 [facility] 1.840.114 350.1.13.10 4.2.7.2.[id number] [facility] 2022-06-19 00:00:00 2022-06-19 00:00:00 Outpatient R CAROLA CLINETNEY [facility] [id number] [facility] 2022-06-14 09:30:00 2022-06-14 10:26:59 Outpatient R CAROLA CLINETNEY [facility] [id number] [facility] 2022-06-14 09:30:00 2022-06-14 10:26:59 [facility] 1..840.114 350.1.13.10 4.2.7.2.[id number] [facility] 2022-05-10 00:00:00 2022-05-10 00:00:00 Orders Only Doctor Unassigned, Manley [facility] 1.2.840.114 350.1.13.10 4.2.7.2.[id number] [facility] 2022-03-10 08:00:00 2022-03-10 08:27:01 Office Visit Carola Clinetney [facility] 1.2.840.114 350.1.13.10 4.2.7.2.[id number] [facility] 2022-03-10 08:00:00 2022-03-10 08:27:01 Outpatient VIKI TEJADA [facility] [id number] [facility] 2022-03-10 08:00:00 2022-03-10 08:00:00 Outpatient VIKI TEJADA [facility] [id number] [facility] 2022-03-07 09:00:00 2022-03-07 09:32:17 Office Visit Viki Cline [facility] 1.2.840.114 350.1.13.10 4.2.7.2.[id number] [facility] 2022-03-07 09:00:00 2022-03-07 09:32:17 Outpatient VIKI TEJADA [facility] [id number] [facility] 2022-03-07 09:00:00 2022-03-07 09:00:00 Outpatient VIKI TEJADA [facility] [id number] [facility] 2022-02-24 16:00:00 2022-02-24 16:30:37 [id number] 2022-02-24 16:00:00 2022-02-24 16:30:37 [facility] 1.2.840.114 350.1.13.10 4.2.7.2.[id number] [facility] 2022-02-24 00:00:00 2022-02-24 00:00:00 Telephone Farrukh Wells [facility] 1.2.840.114 350.1.13.10 4.2.7.2.[id number] [facility] 2022-02-20 08:08:00 2022-02-20 13:03:00 Outpatient R FARRUKH WELLS [facility] [id number] [facility] 2022-02-20 08:08:00 2022-02-20 13:03:00 Hospital Encounter Farrukh Wells [facility] 1.2.840.114 350.1.13.10 4.2.7.2.[id number] [facility] 2022-02-20 09:00:00 2022-02-20 11:10:00 Surgery Farrukh Wells [facility] 1.2.840.114 350.1.13.10 4.2.7.2.[id number] [facility] 2022-02-20 00:00:00 2022-02-20 00:00:00 Orders Only Doctor Unassigned, Manley [facility] 1.2.840.114 350.1.13.10 4.2.7.2.[id number] [facility] 2022-02-17 10:00:00 2022-02-17 10:15:00 Laboratory Only Only, Adc Test Farrukh Wells [facility] 1.2.840.114 350.1.13.10 4.2.7.2.[id number] [facility] 2022-02-17 10:00:00 2022-02-17 10:00:00 Outpatient R FARRUKH WELLS [facility] [id number] [facility] 2022-02-17 00:00:00 2022-02-17 00:00:00 Orders Only Doctor Unassigned, Manley [facility] 1.2840.114 350.1.13.10 4.2.7.2.[id number] [facility] 2022-01-20 00:00:00 2022-01-20 00:00:00 Prep For Surgery Farrukh Wells [facility] 1.2840.114 350.1.13.10 4.2.7.2.[id number] [facility] 2022-01-19 00:00:00 2022-01-19 00:00:00 Tele[facility] 1.20.114 350.1.13.10 4.2.7.2.[id number] [facility] 2022-01-12 08:30:00 2022-01-12 10:10:11 Outpatient R FARRUKH WELLS [facility] [id number] [facility] 2022-01-12 08:30:00 2022-01-12 10:10:11 [facility] 1.2840.114 350.1.13.10 4.2.7.2.[id number] [facility] 2022-01-05 00:00:00 2022-01-05 00:00:00 Orders Only Doctor Unassigned, Manley [facility] 1.2840.114 350.1.13.10 4.2.7.2.[id number] [facility] 2021-09-30 09:30:00 2021-09-30 12:41:13 Outpatient R ADJESSICA HARMON [facility] [id number] [facility] 2021-09-30 09:24:40 2021-09-30 09:54:40 Office Visit AdJessica harmon [facility] 1.2.840.114 350.1.13.10 4.2.7.2.[id number] [facility] 2021-09-30 09:30:00 2021-09-30 09:30:00 Outpatient R ADJESSICA HARMON [facility] [id number] [facility] 2021-09-30 09:30:00 2021-09-30 09:30:00 Outpatient R ADUMJESSICA [facility] [id number] [facility] 2021-09-14 13:30:00 2021-09-14 13:30:00 Outpatient R ADJESSICA HARMON [facility] [id number] [facility] 2021-09-09 13:17:01 2021-09-09 23:59:00 Outpatient R ADJESSICA HARMON [facility] [id number] [facility] 2021-09-09 13:00:00 2021-09-09 23:59:00 Hospital Encounter AdJessica harmon [facility] 1..840.114 350.1.13.10 4.2.7.2.[id number] [facility] 2021-09-02 08:20:21 2021-09-02 09:41:49 Office Visit AdJessica harmon [facility] 1.2.840.114 350.1.13.10 4.2.7.2.[id number] [facility] 2021-09-02 08:15:00 2021-09-02 09:41:49 Outpatient R ADJESSICA HARMON [facility] [id number] [facility] 2021-09-02 08:15:00 2021-09-02 09:41:49 Outpatient R JESSICA VANN [facility] [id number] [facility] 2021-09-02 00:00:00 2021-09-02 00:00:00 Orders Only Doctor Unassigned, Manley [facility] 1.2.840.114 350.1.13.10 4.2.7.2.[id number] [facility] Results Test Description Test Time Test Comments Results Result Co mments Source [id number]00* Test Item Value Reference Range Interpretation Comme nts POCT PREG (test code = 1605) Negative On board controls acceptable with C Line (test code = 3574) Yes POCT PREG LOT # (test code = 3575) POCT PREG TEST DATE ( test code = 3576) [facility]
--- NOTE | 2023-10-21 14:37 | RAD REPORT ---
EXAM DESCRIPTION: RAD - Hand Left 3 View - 10/21/2023 1:51 pm CLINICAL HISTORY: SMASH INJURY COMPARISON: <Comparisons> FINDINGS: Fracture is present involving the fifth middle phalanx base extending to involve the the P IP joint of the fifth finger. Moderate soft tissue swelling. No additional fracture or dislocation se en.
--- NOTE | 2023-10-21 14:58 | EDPHYS ---
Physician Documentation [facility] Name: Yara Jack Age: 33 yrs Sex: Female : 1990 Arrival Date: 10/21/2023 Time: 11:58 Bed 18 Private MD: ED Physician Angel Luis Ramirez HPI: 10/21 12:30 This 33 yrs old Female presents to ER via Ambulatory with complaints of Finger jh7 Injury. 12:30 33-year-old female injured her left fifth digit while playing baseball with her son jh7 yesterday. Complains of swelling, pain, and bruising to the left middle phalanx as well as difficulty with range of motion. History of hypertension.. Historical: - Allergies: 12:30 NKA; hb - Home Meds: 12:30 losartan 50 mg oral tablet 1 tab daily [Active]; amlodipine 2.5 mg oral tablet 1 tab hb daily [Active]; Zoloft 150mg Oral daily [Active]; fenofibrate 54 mg oral tablet 1 tab daily [Active]; - PMHx: 12:30 Anxiety; Hypertensive disorder; hb - Immunization history:: Adult Immunizations unknown. - Social history:: Smoking status: Patient reports the use of cigarette tobacco products, smokes one-half pack cigarettes per day. ROS: 12:30 Constitutional: Negative for fever, chills, and weight loss, Eyes: Negative for injury, jh7 pain, redness, and discharge, Neck: Negative for injury, pain, and swelling, Cardiovascular: Negative for chest pain, palpitations, and edema, Respiratory: Negative for shortness of breath, cough, wheezing, and pleuritic chest pain, Abdomen/GI: Negative for abdominal pain, nausea, vomiting, diarrhea, and constipation, Back: Negative for injury and pain, Skin: Negative for injury, rash, and discoloration, Neuro: Negative for headache, weakness, numbness, tingling, and seizure, 12:30 MS/extremity: Positive for injury or acute deformity, contusion, decreased range of motion, swelling, tenderness, of the left 5th digit, 12:30 All other systems are negative, Exam: 12:30 Constitutional: This is a well developed, well nourished patient who is awake, alert, jh7 and in no acute distress. Head/Face: Normocephalic, atraumatic. Eyes: Pupils equal round and reactive to light, extra-ocular motions intact. Lids and lashes normal. Conjunctiva and sclera are non-icteric and not injected. Cornea within normal limits. Periorbital areas with no swelling, redness, or edema. Neck: Trachea midline, no thyromegaly or masses palpated, and no cervical lymphadenopathy. Supple, full range of motion without nuchal rigidity, or vertebral point tenderness. No Meningismus. Cardiovascular: Regular rate and rhythm with a normal S1 and S2. No gallops, murmurs, or rubs. Normal PMI, no JVD. No pulse deficits. Respiratory: Lungs have equal breath sounds bilaterally, clear to auscultation and percussion. No rales, rhonchi or wheezes noted. No increased work of breathing, no retractions or nasal flaring. Abdomen/GI: Soft, non-tender, with normal bowel sounds. No distension or tympany. No guarding or rebound. No evidence of tenderness throughout. Skin: Warm, dry with normal turgor. Normal color with no rashes, no lesions, and no evidence of cellulitis. Neuro: Awake and alert, GCS 15, oriented to person, place, time, and situation. Motor strength 5/5 in all extremities. Sensory grossly intact. Normal gait. 12:30 Musculoskeletal/extremity: Extremities: noted in the Middle phalanx of left fifth digit: contusion, decreased ROM, swelling, tenderness, ROM: limited active range of motion due to pain, Circulation is intact in all extremities. Sensation intact. Vital Signs: 12:27 BP 129 / 94; Pulse 70; Resp 16; Temp 97.6(O); Pulse Ox 100% on R/A; Weight 75.75 kg; hb Height 5 ft. 0 in. ; Pain 8/10; 12:27 Body Mass Index 32.61 (75.75 kg, 152.4 cm) hb 12:27 Pain Scale: Adult hb Procedures: 12:30 Splinting: Splint applied to left 5th digit using finger splint, applied by tech. [facility] Patient tolerated well. MDM: 12:01 Patient medically screened. [facility] 14:30 Differential diagnosis: fracture, sprain, contusion. [facility] 14:40 Data reviewed: vital signs, nurses notes, radiologic studies, plain films. Care [facility] significantly affected by the following chronic conditions: Hypertension. Counseling: I had a detailed discussion with the patient and/or guardian regarding the historical points, exam findings, and any diagnostic results supporting the discharge/admit diagnosis, the need for outpatient follow up, a orthopedic surgeon, to return to the emergency department if symptoms worsen or persist or if there are any questions or concerns that arise at home. Response to treatment: the patient's symptoms have mildly improved after treatment. 10/21 12:25 Order name: XRAY Hand LEFT 3 View; Complete Time: 14:41 jh7 10/21 14:43 Order name: Finger Splint; Complete Time: 14:58 jh7 Administered Medications: No medications were administered Disposition: 10/22 08:54 Co-signature as Attending Physician, Angel Luis Ramirez MD I reviewed the patient's care rn provided by the Advanced Practice Provider and agree with the diagnosis and treatment plan. Disposition Summary: 10/21/23 14:57 Discharge Ordered Notes: Location: Home [facility] Problem: new [facility] Symptoms: are unchanged [facility] Condition: Stable jh Diagnosis - Fracture of left middle phalanx of the little finger [facility] Followup: [facility] - With: Sam Reyes MD - When: 2 - 3 days - Reason: Recheck today's complaints Discharge Instructions: - Discharge Summary Sheet 7 - Finger Fracture, Adult [facility] Forms: - Work release form eb - Medication Reconciliation Form [facility] - Thank You Letter [facility] - Patient Portal Instructions [facility] - Leadership Thank You Letter [facility] Signatures: Dispatcher [employer] Angel Luis Ruvalcaba MD MD rn Baxter, Heather, RN RN hb Hadash, Jennifer, FNP PEN AND PENCIL REPAIRER [facility] Corrections: (The following items were deleted from the chart) 10/21 14:57 14:57 Fracture of unspecified phalanx of left ring finger jh7 7
--- NOTE | 2023-10-21 14:58 | ER ---
Nurse's Notes [facility] Name: Yraa Jack Age: 33 yrs Sex: Female : 1990 Arrival Date: 10/21/2023 Time: 11:58 Bed 18 Private MD: Diagnosis: Fracture of left middle phalanx of the little finger Presentation: 10/21 12:27 Chief complaint: Patient states: Pt states she injured left 5th digit yesterday while hb playing baseball. Pt states her left hand was struck by a fast ball while partially in a glove. Pt has movement and sensation to digit. Coronavirus screen: Vaccine status: Patient reports receiving the 2nd dose of the covid vaccine. At this time, the client does not indicate any symptoms associated with coronavirus-19. Ebola Screen: Patient negative for fever greater than or equal to 101.5 degrees Fahrenheit, and additional compatible Ebola Virus Disease symptoms Patient denies exposure to infectious person. Patient denies travel to an Ebola-affected area in the 21 days before illness onset. No symptoms or risks identified at this time. Initial Sepsis Screen: Does the patient meet any 2 criteria? No. Patient's initial sepsis screen is negative. Does the patient have a suspected source of infection? No. Patient's initial sepsis screen is negative. Risk Assessment: Do you want to hurt yourself or someone else? Patient reports no desire to harm self or others. Onset of symptoms was October 20, 2023 at 17:00. 12:27 Method Of Arrival: Ambulatory hb 12:27 Acuity: ARTIS 4 hb Triage Assessment: 12:33 General: Appears in no apparent distress. Behavior is calm, cooperative. Pain: hb Complains of pain in left hand. Musculoskeletal: Reports 5th digit injury. Injury Description: hit by fastball. Historical: - Allergies: 12:30 NKA; hb - Home Meds: 12:30 losartan 50 mg oral tablet 1 tab daily [Active]; amlodipine 2.5 mg oral tablet 1 tab hb daily [Active]; Zoloft 150mg Oral daily [Active]; fenofibrate 54 mg oral tablet 1 tab daily [Active]; - PMHx: 12:30 Anxiety; Hypertensive disorder; hb - Immunization history:: Adult Immunizations unknown. - Social history:: Smoking status: Patient reports the use of cigarette tobacco products, smokes one-half pack cigarettes per day. Screenin:15 [facility] ED Fall Risk Assessment (Adult) History of falling in the last 3 months, kc6 including since admission No falls in past 3 months (0 pts) Confusion or Disorientation No (0 pts) Intoxicated or Sedated No (0 pts) Impaired Gait No (0 pts) Mobility Assist Device Used No (0 pt) Altered Elimination No (0 pt) Score/Fall Risk Level 0 - 2 = Low Risk. Abuse screen: Denies threats or abuse. Denies injuries from another. Nutritional screening: No deficits noted. Tuberculosis screening: No symptoms or risk factors identified. Assessment: 13:15 General: Appears in no apparent distress. comfortable, well groomed, well developed, kc6 Behavior is calm, cooperative, appropriate for age. Pain: Complains of pain in left hand. Neuro: Level of Consciousness is awake, alert, obeys commands, Oriented to person, place, time, situation, Appropriate for age. Cardiovascular: Capillary refill < 3 seconds. Respiratory: Airway is patent Trachea midline Respiratory effort is even, unlabored, Respiratory pattern is regular, symmetrical. GI: No signs and/or symptoms were reported involving the gastrointestinal system. : No signs and/or symptoms were reported regarding the genitourinary system. EENT: No signs and/or symptoms were reported regarding the EENT system. Derm: No signs and/or symptoms reported regarding the dermatologic system. Skin is intact, is healthy with good turgor, Skin is pink, warm \T\ dry. Musculoskeletal: No signs and/or symptoms reported regarding the musculoskeletal system. Circulation, motion, and sensation intact. Capillary refill < 3 seconds, Range of motion: intact in all extremities. 14:13 Reassessment: Patient appears in no apparent distress at this time. No changes from kc6 previously documented assessment. Patient and/or family updated on plan of care and expected duration. Pain level reassessed. Patient is alert, oriented x 3, equal unlabored respirations, skin warm/dry/pink. Vital Signs: 12:27 BP 129 / 94; Pulse 70; Resp 16; Temp 97.6(O); Pulse Ox 100% on R/A; Weight 75.75 kg; hb Height 5 ft. 0 in. ; Pain 8/10; 12:27 Body Mass Index 32.61 (75.75 kg, 152.4 cm) hb 12:27 Pain Scale: Adult hb ED Course: 12:01 Patient arrived in ED. ts1 12:01 Monique Meier FNP [facility] 12:01 Angel Luis Ramirez MD is Attending Physician. 7 12:30 Triage completed. hb 12:33 Arm band placed on Patient placed in an exam room, on a stretcher. hb 13:14 Laurie Sun, RN is Primary Nurse. kc6 13:15 Patient has correct armband on for positive identification. Bed in low position. Call kc6 light in reach. Side rails up X 1. Client placed on continuous cardiac and pulse oximetry monitoring. NIBP monitoring applied. 13:15 Patient maintains SpO2 saturation greater than 95% on room air. kc6 13:53 XRAY Hand LEFT 3 View In Process Unspecified. EDMS 14:56 Sam Reyes MD is Referral Physician. jh7 15:03 Dave tape left hand. kc6 15:03 No provider procedures requiring assistance completed. Patient did not have IV access kc6 during this emergency room visit. Administered Medications: No medications were administered Medication: 15:03 VIS not applicable for this client. kc6 Outcome: 14:57 Discharge ordered by . [facility] 15:03 Discharged to home ambulatory, kc6 15:03 Condition: good 15:03 Discharge instructions given to patient, Instructed on discharge instructions, follow up and referral plans. Demonstrated understanding of instructions, follow-up care, splint care, 15:03 Patient left the ED. kc6 Signatures: Dispatcher [employer] EDMI Karen Love RN RN Monique Meier FNP [employer]NA[employer] SUPER[employer]OR [facility] Laurie Sun RN RN kc6 [place], [place] PAS ts1
[2023-10-21 15:14] VITALS: BP 129/94; TEMP 97.6; O2SAT 100
== END ==
LOC: ER 11:58
PROC: 2W3KX1Z Immobilization of Left Finger using Splint (ICD-10-PCS; principal; 2023-10-21)
DX: S62.627A Displaced fracture of middle phalanx of left little finger, initial encounter for closed fracture (principal); I10 Essential (primary) hypertension; F41.9 Anxiety disorder, unspecified; F17.210 Nicotine dependence, cigarettes, uncomplicated
CPT/HCPCS: 99284

== ENCOUNTER 2024-05-24 22:21 | Emergency (ER) | payer OTHER ==
--- OUTSIDE RECORDS SUMMARY | 2024-05-24 22:25 | XMS REPORT | Continuity of Care Document ---
Author Name Unknown Address [address] [facility] [address] [place] [address] [facility] thconnect Address [address] [facility] [address] [place] [address] Care Team Providers Care Dock Manager Name Role Phone JAKE EASON Primary Care Physician Maisha suárez , [facility] Sleep Lab Bed Attending Clinician Unavail Anupam Arthur MD Attending Clinician ANUPAM MARTINEZ Attending Clinician UnavailANUPAM José Attending Clinician Unavaila URSULA Johnson Attending Clinician Unavailable Ursula Laughlin PA-C Attending Clinician [phone] Unknown, Attending Attending Clinician UnavailTHANH Sainz Attending Clinician UnavailTHANH Mac Attending Clinician UnavailThanh Mac MD Attending Clinician [phone] ELICEO DOVER Attending Clinician Unavaila ELICEO Centeno Attending Clinician Unavaila JOSIAH Palumbo Attending Clinician Unavailable Josiah León MD Attending Clinician [phone] Doctor Unassigned, [place] Attending Clinician U JESSICA Alonzo Attending Clinician Unavailable Jessica Vann MD Attending Clinician [phone] VIKI CLINE Attending Clinician Unavaila Viki Campos Attending Clinician Farrukh Wells MD Attending Clinician [phone] FARRUKH WELLS Attending Clinician Unavailable Only, Adc Test Attending Clinician Unavailable VIKI CLINE Admitting Clinician Unavaila FARRUKH Corrigan Admitting Clinician Unavailable Farrukh Wells MD Admitting Clinician [phone] JESSICA VANN Admitting Clinician Unavailable Payers Payer Name Policy Type Policy Number Effective Date Expirati on Date Source Problems Condition Name Condition Details Condition Category Status Onset Date Resolution Date Last Treatment Date Treating Clinician Comments Source Routine gynecologi hayde examinatio n Routine gynecologi hayde examinatio n Disease Active 05-07 00:00: 00 [facility] Biliary colic Biliary colic Disease Active 02-01 00:00: 00 Overview: Formattin g of this note might be different from the original. Added automatic ally from request for surgery [id number] [facility] Obesity (BMI 30-39.9) Obesity (BMI 30-39.9) Disease Active 2020-10 1-12 00:00: 00 [facility] Allergies, Adverse Reactions, Alerts Allergy Name Allergy Type Status Severity Reaction(s) Onset Date Inactive Date Treating Clinician Comments Source NO KNOWN ALLERGIE S Drug Class Active [facility] Social History Social Habit Start Date Stop Date Quantity Comments Source History of tobacco use Cigarette Smoker [facility] History SDOH Alcohol Frequency [facility] History SDOH Alcohol Std Drinks [facility] History SDOH Alcohol Binge [facility] Gender identity [facility] Sexual orientation U [facility] Alcohol intake 2024-02-21 00:00:00 2024-02-21 00:00:00 Current drinker of alcohol (finding) [facility] Alcoholic beverage intake 2024-02-21 00:00:00 2024-02-21 00:00:00 Current drinker of alcohol (finding) [facility] Tobacco use and exposure 2023-05-07 00:00:00 2023-05-07 00:00:00 Smokeless tobacco non-user [facility] History of Social function 2023-02-26 00:00:00 2023-02-26 00:00:00 [facility] Exposure to SARS-CoV-2 (event) 2023-02-15 00:00:00 2023-02-25 21:39:00 Not sure [facility] Tobacco Comment 2022-06-14 00:00:00 2022-06-14 00:00:00 5-8 ciggs a day [facility] Alcohol Comment 2021-09-02 00:00:00 2021-09-02 00:00:00 social [facility] Sex assigned at 1990 00:00:00 1990 00:00:00 [facility] Smoking Status Start Date Stop Date Source Smokes tobacco daily 2023-05-07 00:00:00 [facility] Medications Ordered Medication Name Filled Medication Name Start Date Stop Date Current Medication? Ordering Clinician Indication Dosage Frequency Signature (SIG) Comments Components Source methylPREDN ISolone 4 mg tablets 02-20 00:00: 00 Yes [id number] Take by mouth SEE-INSTRU CTIONS. follow package directions [facility] amlodipine- atorvastata tin 2.5-20 mg per tablet 05-07 13:39: 32 Yes [facility] PAWAN 1.5/30, 21, 1.5-30 mg-mcg per tablet 02-16 00:00: 00 05-07 00:00 :00 No TAKE ONE (1) TABLET(S) BY MOUTH DAILY IN THE MORNING. [facility] losartan 50 mg tablet 02-14 00:00: 00 Yes 50mg Take 1 tablet by mouth in the morning. [facility] fenofibrate 54 mg tablet 02-14 00:00: 00 Yes 54mg Take 1 tablet by mouth in the morning. [facility] fluticasone propionate 50 mcg/actuati on nasal spray 02-01 00:00: 00 05-07 00:00 :00 No USE ONE (1) OR TWO (2) SPRAY(S) INTO EACH NOSTRIL DAILY. [facility] NUVARING 0.12-0.015 mg/24 hr vaginal insert 9-14 00:00: 00 Yes [id number] 1{each} Insert 1 Each into vagina once every month. Insert vaginally and leave in place for 3 consecutiv e weeks, then remove for 1 week. [facility] Norethindro ne Acet-Ethiny l Est (LOESTRIN 1.5, 21,) 1.5-30 mg-mcg per tablet 9 00:00: 00 Yes [id number] 1{tbl} Take 1 tablet by mouth in the morning. [facility] SERTraline 50 mg tablet 2020-10 00:00: 00 Yes 50mg Take 50 mg by mouth daily. [facility] losartan 25 mg tablet 2020-10 00:00: 00 Yes 25mg Take 1 tablet by mouth in the morning. [facility] busPIRone 5 mg tablet 06-16 00:00: 00 Yes 5mg Take 5 mg by mouth 2 (two) times daily as needed for Other. [facility] Immunizations Ordered Immunization Name Filled Immunization Name Date Status Comments Source Varicella (varivax)(chicken pox) 2022-10-27 00:00:00 Completed [facility] 2022-10-27 00:00:00 Completed [facility] Varicella (varivax)(chicken pox) 2022-10-27 00:00:00 Completed [facility] 2022-10-27 00:00:00 Completed [facility] Varicella (varivax)(chicken pox) 2022-10-27 00:00:00 Completed [facility] 2022-10-27 00:00:00 Completed [facility] Varicella (varivax)(chicken pox) 2022-10-27 00:00:00 Completed [facility] 2022-10-27 00:00:00 Completed [facility] Varicella (varivax)(chicken pox) 2022-10-27 00:00:00 Completed [facility] 2022-10-27 00:00:00 Completed [facility] Varicella (varivax)(chicken pox) 2022-10-27 00:00:00 Completed [facility] MMR 2022-10-27 00:00:00 Completed [facility] Varicella (varivax)(chicken pox) 2022-10-27 00:00:00 Completed [facility] MMR 2022-10-27 00:00:00 Completed [facility] SARS-COV-2 COVID-19 VACCINE - (MODERNA) 2021-07-19 00:00:00 Completed [facility] SARS-COV-2 COVID-19 VACCINE - (MODERNA) 2021-07-19 00:00:00 Completed [facility] SARS-COV-2 COVID-19 VACCINE - (MODERNA) 2021-07-19 00:00:00 Completed [facility] SARS-COV-2 COVID-19 VACCINE - (MODERNA) 2021-07-19 00:00:00 Completed [facility] SARS-COV-2 COVID-19 VACCINE - (MODERNA) 2021-07-19 00:00:00 Completed [facility] SARS-COV-2 COVID-19 VACCINE - (MODERNA) 2021-07-19 00:00:00 Completed [facility] SARS-COV-2 COVID-19 VACCINE - (MODERNA) 2021-07-19 00:00:00 Completed [facility] SARS-COV-2 COVID-19 VACCINE - (MODERNA) 2021-06-10 00:00:00 Completed [facility] SARS-COV-2 COVID-19 VACCINE - (MODERNA) 2021-06-10 00:00:00 Completed [facility] SARS-COV-2 COVID-19 VACCINE - (MODERNA) 2021-06-10 00:00:00 Completed [facility] SARS-COV-2 COVID-19 VACCINE - (MODERNA) 2021-06-10 00:00:00 Completed [facility] SARS-COV-2 COVID-19 VACCINE - (MODERNA) 2021-06-10 00:00:00 Completed [facility] SARS-COV-2 COVID-19 VACCINE - (MODERNA) 2021-06-10 00:00:00 Completed [facility] SARS-COV-2 COVID-19 VACCINE - (MODERNA) 2021-06-10 00:00:00 Completed [facility] Varicella (varivax)(chicken pox) Unknown Completed [facility] MMR Unknown Completed [facility] SARS-COV-2 COVID-19 VACCINE - (MODERNA) Unknown Completed [facility] SARS-COV-2 COVID-19 VACCINE - (MODERNA) Unknown Completed [facility] Varicella (varivax)(chicken pox) Unknown Completed [facility] MMR Unknown Completed [facility] SARS-COV-2 COVID-19 VACCINE - (MODERNA) Unknown Completed [facility] SARS-COV-2 COVID-19 VACCINE - (MODERNA) Unknown Completed [facility] Varicella (varivax)(chicken pox) Unknown Completed [facility] MMR Unknown Completed [facility] SARS-COV-2 COVID-19 VACCINE - (MODERNA) Unknown Completed [facility] SARS-COV-2 COVID-19 VACCINE - (MODERNA) Unknown Completed [facility] Varicella (varivax)(chicken pox) Unknown Completed [facility] MMR Unknown Completed [facility] SARS-COV-2 COVID-19 VACCINE - (MODERNA) Unknown Completed [facility] SARS-COV-2 COVID-19 VACCINE - (MODERNA) Unknown Completed [facility] Vital Signs Vital Name Observation Time Observation Value Comments S ource Systolic blood pressure 2024-02-21 19:29:00 134 mm[Hg] [facility] Diastolic blood pressure 2024-02-21 19:29:00 93 mm[Hg] [facility] Heart rate 2024-02-21 19:29:00 59 /min [facility] Body temperature 2024-02-21 19:29:00 36.72 Lori [facility] Respiratory rate 2024-02-21 19:29:00 17 /min [facility] Body weight 2024-02-21 19:29:00 73.029 kg [facility] BMI 2024-02-21 19:29:00 31.44 kg/m2 [facility] Oxygen saturation in Arterial blood by Pulse oximetry 2024-02-21 19:29:00 97 /min [facility] Systolic blood pressure 2023-10-31 21:08:00 121 mm[Hg] [facility] Diastolic blood pressure 2023-10-31 21:08:00 81 mm[Hg] [facility] Heart rate 2023-10-31 21:08:00 68 /min [facility] Body height 2023-10-31 21:08:00 152.4 cm [facility] Body weight 2023-10-31 21:08:00 72.122 kg [facility] BMI 2023-10-31 21:08:00 31.05 kg/m2 [facility] Oxygen saturation in Arterial blood by Pulse oximetry 2023-10-31 21:08:00 95 /min [facility] Systolic blood pressure 2023-05-07 18:24:00 121 mm[Hg] [facility] Diastolic blood pressure 2023-05-07 18:24:00 79 mm[Hg] [facility] Heart rate 2023-05-07 18:24:00 62 /min [facility] Body temperature 2023-05-07 18:24:00 36.83 Lori [facility] Respiratory rate 2023-05-07 18:24:00 18 /min [facility] Body height 2023-05-07 18:24:00 152.4 cm [facility] Body weight 2023-05-07 18:24:00 74.39 kg [facility] BMI 2023-05-07 18:24:00 32.03 kg/m2 [facility] Systolic blood pressure 2023-02-26 18:19:00 131 mm[Hg] [facility] Diastolic blood pressure 2023-02-26 18:19:00 84 mm[Hg] [facility] Heart rate 2023-02-26 18:19:00 71 /min [facility] Respiratory rate 2023-02-26 18:19:00 17 /min [facility] Body height 2023-02-26 18:19:00 152.4 cm [facility] Body weight 2023-02-26 18:19:00 72.712 kg [facility] BMI 2023-02-26 18:19:00 31.31 kg/m2 [facility] Oxygen saturation in Arterial blood by Pulse oximetry 2023-02-26 18:19:00 99 /min [facility] Systolic blood pressure 2022-07-04 15:49:00 120 mm[Hg] [facility] Diastolic blood pressure 2022-07-04 15:49:00 85 mm[Hg] [facility] Heart rate 2022-07-04 15:49:00 70 /min [facility] Body temperature 2022-07-04 15:49:00 36.94 Lori [facility] Respiratory rate 2022-07-04 15:49:00 18 /min [facility] Body height 2022-07-04 15:49:00 152.4 cm [facility] Body weight 2022-07-04 15:49:00 75.751 kg [facility] BMI 2022-07-04 15:49:00 32.61 kg/m2 [facility] Procedures Procedure Date / Time Performed Performing Clinician Source RPR (MONITOR)$W/REFL TITER-Q 2023-05-07 19:23:00 Eliceo Dover [facility] ASSIGNMENT OF BENEFITS 2023-02-26 18:06:16 Docchuy cuello Unassigned, [place] [facility] POCT TEST 2022-07-04 16:49:00 AdJessica erickson [facility] CONSENT FOR CONTRACEPTION 2022-07-04 05:01:00 Doctor Unassigned, [place] [facility] Encounters Start Date/Time End Date/Time Encounter Type Admission Type Attending Clinicians Care Facility Care Department Encounter ID Source 2024-04-19 20:00:00 2024-04-19 22:30:00 Filterer Visit 1, [facility] Sleep Lab Bed Anupam Martinez [facility] 1.2.840.114 350.1.13.10 4.2.7.2.686 [id number] [facility] 2024-04-19 20:00:00 2024-04-19 20:00:00 Outpatient R DENISE ANUPAM STOVALL [facility] [id number] [facility] 2024-02-21 14:20:00 2024-02-21 14:44:27 Outpatient R URSULA LAUGHLIN [facility] [id number] [facility] 2024-02-21 14:20:00 2024-02-21 14:44:27 Urgent Care Ursula Laughlin Unknown, Attending [facility] 1.2.840.114 350.1.13.10 4.2.7.2.686 [id number] [facility] 2023-10-31 14:45:00 2023-10-31 15:14:00 Outpatient R THANH RUSSO CRAIG [facility] [id number] [facility] 2023-10-31 14:45:00 2023-10-31 15:14:00 Office Visit Thanh Russo [facility] 1.2.840.114 350.1.13.10 4.2.7.2.686 [id number] [facility] 2023-05-30 14:30:00 2023-05-30 14:30:00 Outpatient R ELICEO DOVER CHERYAL [facility] [id number] [facility] 2023-05-29 10:30:00 2023-05-29 10:30:00 Outpatient R [facility] [id number] [facility] 2023-05-07 13:30:00 2023-05-07 13:57:41 Outpatient R ELICEO DOVER CHERYAL [facility] [id number] [facility] 2023-05-07 13:30:00 2023-05-07 13:57:41 Office Visit Eliceo Dover [facility] 1.2.840.114 350.1.13.10 4.2.7.2.686 [id number] [facility] 2023-05-07 00:00:00 2023-05-07 00:00:00 [facility] 1.2.840.114 350.1.13.10 4.2.7.2.686 [id number] [facility] 2023-02-26 13:20:00 2023-02-26 13:41:28 Outpatient R [facility] [id number] [facility] 2023-02-26 13:20:00 2023-02-26 13:41:28 [facility] 1.2.840.114 350.1.13.10 4.2.7.2.686 [id number] [facility] 2023-02-26 00:00:00 2023-02-26 00:00:00 Orders Only Doctor Unassigned, [place] [facility] 1.2.840.114 350.1.13.10 4.2.7.2.686 [id number] [facility] 2023-02-26 00:00:00 2023-02-26 00:00:00 [facility] 1.2.840.114 350.1.13.10 4.2.7.2.686 [id number] [facility] 2022-11-10 09:30:00 2022-11-10 09:30:00 Outpatient R JESSICA VANN [facility] [id number] [facility] 2022-07-05 00:00:00 2022-07-05 00:00:00 Tele[address] Vann [facility] 1.2.840.114 350.1.13.10 4.2.7.2.686 [id number] [facility] 2022-07-04 10:30:00 2022-07-04 12:04:32 Outpatient R JESSICA VANN [facility] [id number] [facility] 2022-07-04 10:30:00 2022-07-04 12:04:32 Office Visit Jessica Vann [facility] 1.2.840.114 350.1.13.10 4.2.7.2.686 [id number] [facility] 2022-07-04 00:00:00 2022-07-04 00:00:00 Orders Only Doctor Unassigned, [place] [facility] 1.2.840.114 350.1.13.10 4.2.7.2.686 [id number] [facility] 2022-06-20 08:10:40 2022-06-20 23:59:00 Outpatient VIKI TEJADA [facility] [id number] [facility] 2022-06-20 08:00:00 2022-06-20 23:59:00 Hospital Encounter Viki Cline [facility] 1.2.840.114 350.1.13.10 4.2.7.2.686 [id number] [facility] 2022-06-19 00:00:00 2022-06-19 00:00:00 Outpatient VIKI TEJADA [facility] [id number] [facility] 2022-06-14 09:30:00 2022-06-14 10:26:59 Outpatient VIKI TEJADA [facility] [id number] [facility] 2022-06-14 09:30:00 2022-06-14 10:26:59 Office Visit Viki Cline [facility] 1.2.840.114 350.1.13.10 4.2.7.2.686 [id number] [facility] 2022-05-10 00:00:00 2022-05-10 00:00:00 Orders Only Doctor Unassigned, [place] [facility] 1.2.840.114 350.1.13.10 4.2.7.2.686 [id number] [facility] 2022-03-10 08:00:00 2022-03-10 08:27:01 Office Visit Viki Cline [facility] 1.2.840.114 350.1.13.10 4.2.7.2.686 [id number] [facility] 2022-03-10 08:00:00 2022-03-10 08:27:01 Outpatient R VIKI CLINE [facility] [id number] [facility] 2022-03-10 08:00:00 2022-03-10 08:00:00 Outpatient R VIKI CLINE [facility] [id number] [facility] 2022-03-07 09:00:00 2022-03-07 09:32:17 Office Visit Viki Cline [facility] 1.2.840.114 350.1.13.10 4.2.7.2.686 [id number] [facility] 2022-03-07 09:00:00 2022-03-07 09:32:17 Outpatient R VIKI CLINE [facility] [id number] [facility] 2022-03-07 09:00:00 2022-03-07 09:00:00 [id number] 2022-02-24 16:00:00 2022-02-24 16:30:37 Outpatient R CAROLA CLINETNEY [facility] [id number] [facility] 2022-02-24 16:00:00 2022-02-24 16:30:37 [facility] 1.2840.114 350.1.13.10 4.2.7.2.686 [id number] [facility] 2022-02-24 00:00:00 2022-02-24 00:00:00 Telephone Wells Farrukh [facility] 1.20.114 350.1.13.10 4.2.7.2.686 [id number] [facility] 2022-02-20 08:08:00 2022-02-20 13:03:00 Outpatient R FARRUKH WELLS [facility] [id number] [facility] 2022-02-20 08:08:00 2022-02-20 13:03:00 Hospital Encounter Farrukh Wells [facility] [place] 1.20.114 350.1.13.10 4.2.7.2.686 [id number] [facility] 2022-02-20 09:00:00 2022-02-20 11:10:00 Surgery Farrukh Wells [facility] [place] 1.2840.114 350.1.13.10 4.2.7.2.686 [id number] [facility] 2022-02-20 00:00:00 2022-02-20 00:00:00 Orders Only Doctor Unassigned, [place] [facility] 1.2840.114 350.1.13.10 4.2.7.2.686 [id number] [facility] 2022-02-17 10:00:00 2022-02-17 10:15:00 Laboratory Only Only, Adc Test Farrukh Wells [facility] 1.2.840.114 350.1.13.10 4.2.7.2.686 [id number] [facility] 2022-02-17 10:00:00 2022-02-17 10:00:00 Outpatient R FARRUKH WELLS [facility] [id number] [facility] 2022-02-17 00:00:00 2022-02-17 00:00:00 Orders Only Doctor Unassigned, [place] [facility] 1.2.840.114 350.1.13.10 4.2.7.2.686 [id number] [facility] 2022-01-20 00:00:00 2022-01-20 00:00:00 Prep For Surgery Farrukh Wells [facility] 1.2.840.114 350.1.13.10 4.2.7.2.686 [id number] [facility] 2022-01-19 00:00:00 2022-01-19 00:00:00 Telephone Farrukh Wells [facility] 1.2.840.114 350.1.13.10 4.2.7.2.686 [id number] [facility] 2022-01-12 08:30:00 2022-01-12 10:10:11 Outpatient R FARRUKH WELLS [facility] [id number] [facility] 2022-01-12 08:30:00 2022-01-12 10:10:11 Office Visit Farrukh Wells [facility] 1.2.840.114 350.1.13.10 4.2.7.2.686 [id number] [facility] 2022-01-05 00:00:00 2022-01-05 00:00:00 Orders Only Doctor Unassigned, [place] [facility] 1..840.114 350.1.13.10 4.2.7.2.686 [id number] [facility] 2021-09-30 09:30:00 2021-09-30 12:41:13 Outpatient R ADUMJESSICA [facility] [id number] [facility] 2021-09-30 09:24:40 2021-09-30 09:54:40 Office Visit Adfaustino [facility] 1.840.114 350.1.13.10 4.2.7.2.686 [id number] [facility] 2021-09-30 09:30:00 2021-09-30 09:30:00 Outpatient R ADUM [facility] [id number] [facility] 2021-09-30 09:30:00 2021-09-30 09:30:00 Outpatient R ADUM [facility] [id number] [facility] 2021-09-14 13:30:00 2021-09-14 13:30:00 Outpatient R ADFAUSTINO [facility] [id number] [facility] 2021-09-09 13:17:01 2021-09-09 23:59:00 Outpatient R ADUM [facility] [id number] [facility] 2021-09-09 13:00:00 2021-09-09 23:59:00 Hospital Encounter AdJessica erickson [facility] 1..840.114 350.1.13.10 4.2.7.2.686 [id number] [facility] 2021-09-02 08:20:21 2021-09-02 09:41:49 Office Visit Adfaustino Jessica [facility] 1..840.114 350.1.13.10 4.2.7.2.686 [id number] [facility] 2021-09-02 08:15:00 2021-09-02 09:41:49 Outpatient R TOMEKA [facility] [id number] [facility] 2021-09-02 08:15:00 2021-09-02 09:41:49 Outpatient R [facility] [facility] [id number] [facility] 2021-09-02 00:00:00 2021-09-02 00:00:00 Orders Only Doctor Unassigned, [place] [facility] [id number] [facility] Results Test Description Test Time Test Comments Results Result Co mments Source [facility] [id number] 16:50:00* Test Item Value Reference Range Interpretation Comme nts POCT PREG (test code = 1605) Negative On board controls acceptable with C Line (test code = 3574) Yes POCT PREG LOT # (test code = 3575) POCT PREG TEST DATE ( test code = 3576) [facility]
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
[2024-05-24] MEDS ORDERED: IBUPROFEN 400 MG TAB ONE (23:53)
[2024-05-25 04:58] VITALS: BP 151/97; TEMP 98.4; O2SAT 99
== END 2024-05-25 00:20 | disposition home or self-care (01) ==
LOC: ER 22:21
DX: M54.2 Cervicalgia (principal); V49.40XA Driver injured in collision with unspecified motor vehicles in traffic accident, initial encounter
CPT/HCPCS: 99283